=== PATIENT | male | born 1985 | race Caucasian/White ===

== ENCOUNTER 2017-01-21 12:58 | Emergency (ER) | payer OTHER ==
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
--- NOTE | 2017-01-21 14:37 | ED ORDER SUMMARY ---
..... Patient: DAVID ARANA OrderSheet [facility] VisitID: [id number] [place] [address] 31y, M Registration Date/Time: 01/21/2017 ORDER SHEET Weight: 67.1 kg (stated) Allergies: Sulfa Antibiotics GENERAL ORDERS: Cervical Spine 2 or 3V Urgent (13:32 01/21/2017 Heike MANCERA) (Ack 13:37 Anju) (14:00 SRoberts R.N.) Thoracic Spine 2V Urgent (13:32 01/21/2017 Heike MANCERA) (Ack 13:37 Anju) (14:00 SRoberts R.N.) Lumbar Spine 2 or 3V Urgent (13:32 01/21/2017 Heike MANCERA) (Ack 13:37 RKkathie) (14:00 SRoberts R.N.) MEDICATION ORDERS: IV FLUIDS: ORDER SHEET NOTES: [Electronically signed by Chrissy Bolden R.N. (14:49 01/21/2017)] [Electronically signed by Reji Pritchard MD (12:12 01/22/2017)] [Electronically locked/signed by Chrissy Bolden R.N. (14:49 01/21/2017)]
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
--- NOTE | 2017-01-21 14:37 | ED ORDER SUMMARY ---
..... Patient: DAVID ARANA OrderSheet [facility] VisitID: [id number] [place] [address] 31y, M Registration Date/Time: 01/21/2017 ORDER SHEET Weight: 67.1 kg (stated) Allergies: Sulfa Antibiotics GENERAL ORDERS: Cervical Spine 2 or 3V Urgent (13:32 01/21/2017 Heike MANCERA) (Ack 13:37 Anju) (14:00 SRoberts R.N.) Thoracic Spine 2V Urgent (13:32 01/21/2017 Heike MANCERA) (Ack 13:37 Anju) (14:00 SRoberts R.N.) Lumbar Spine 2 or 3V Urgent (13:32 01/21/2017 Heike MANCERA) (Ack 13:37 RKkathie) (14:00 SRoberts R.N.) MEDICATION ORDERS: IV FLUIDS: ORDER SHEET NOTES: [Electronically signed by Chrissy Bolden R.N. (14:49 01/21/2017)] [Electronically signed by Reji Pritchard MD (12:12 01/22/2017)] [Electronically locked/signed by Chrissy Bolden R.N. (14:49 01/21/2017)]
--- NOTE | 2017-01-22 12:13 | ED MAR SUMMARY ---
..... Medication Administration Record [facility] [address] [id number] Patient: DAVID ARANA Eduardo Visit ID: [id number] 31y, M Weight: 67.1 kg Height/Length: 71 in BMI: 20.6 ALLERGIES: Sulfa Antibiotics
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
--- NOTE | 2017-01-22 12:13 | ED MAR SUMMARY ---
..... Medication Administration Record [facility] [address], [place] [id number] Patient: DAVID ARANA Eduardo Visit ID: [id number] 31y, M Weight: 67.1 kg Height/Length: 71 in BMI: 20.6 ALLERGIES: Sulfa Antibiotics
--- NOTE | 2017-01-22 12:13 | ED MED RECONCILIATION SUMMARY ---
Patient: DAVID ARANA Medication Reconciliation Report [facility] VisitID: [id number] [address] [place] [address] 31y, M Registration Date/Time: 01/21/2017 Weight: 67.1 kg Height/Length: 71 in. BMI: 20.6 ALLERGIES: Sulfa Antibiotics The patient's Home Medications are listed below: CONTINUE TAKING THE FOLLOWING MEDICATIONS: Ibuprofen Oral Tylenol prn The source(s) of the original Home Medication information: patient The following Medications were given to the patient in the Emergency Department: None. The following Medications were prescribed to the patient: Motrin (available over the counter): take according to label instructions. -- Reji Pritchard MD Hydrocodone/APAP 5mg/325mg: take 1 to 2 orally every 6 hours as needed for pain. Dispense fifteen (15). No refills. -- Reji Pritchard MD Flexeril 10 mg: Take 1 orally every 8 hours as needed for muscle spasm. Dispense twenty (20). No refills. Substitution is permissible. -- Reji Pritchard MD
--- NOTE | 2017-01-22 12:13 | ED MED RECONCILIATION SUMMARY ---
Patient: DAVID ARANA Medication Reconciliation Report [facility] VisitID: [id number] [address] [place] [address] 31y, M Registration Date/Time: 01/21/2017 Weight: 67.1 kg Height/Length: 71 in. BMI: 20.6 ALLERGIES: Sulfa Antibiotics The patient's Home Medications are listed below: CONTINUE TAKING THE FOLLOWING MEDICATIONS: Ibuprofen Oral Tylenol prn The source(s) of the original Home Medication information: patient The following Medications were given to the patient in the Emergency Department: None. The following Medications were prescribed to the patient: Motrin (available over the counter): take according to label instructions. -- Reji Pritchard MD Hydrocodone/APAP 5mg/325mg: take 1 to 2 orally every 6 hours as needed for pain. Dispense fifteen (15). No refills. -- Reji Pritchard MD Flexeril 10 mg: Take 1 orally every 8 hours as needed for muscle spasm. Dispense twenty (20). No refills. Substitution is permissible. -- Reji Pritchard MD
== END 2017-01-21 14:45 | disposition home or self-care (01) ==
LOC: ED SRH 12:58
DX: S16.1XXA Strain of muscle, fascia and tendon at neck level, initial encounter (principal); S29.012A Strain of muscle and tendon of back wall of thorax, initial encounter; S39.012A Strain of muscle, fascia and tendon of lower back, initial encounter; V23.4XXA Motorcycle driver injured in collision with car, pick-up truck or van in traffic accident, initial encounter; Y92.410 Unspecified street and highway as the place of occurrence of the external cause; F17.210 Nicotine dependence, cigarettes, uncomplicated; Z88.2 Allergy status to sulfonamides